=== PATIENT | male | born 1970 | race Hispanic/Latino ===

== ENCOUNTER 2019-07-28 00:32 | Emergency (ER) | payer BC ==
[~2019-07-28] VITALS: Ht 162.6 cm; Wt 98.2 kg
[2019-07-28] MEDS ORDERED: NS 1,000 ML IV ONE (01:30)
[2019-07-28 01:32] LABS: BASO # 0.1 10^3/uL (0.0-0.2); BASO % 0.5 % (0.0-1.0); EOS % 0.3 % (0.0-3.0); HEMOGLOBIN 15.5 g/dl (13.5-17.5); LYMPH % 15.2 % (24.0-44.0); MEAN CORPUSCULAR HEMOGLOBIN 29.4 pg (27.0-33.0); MEAN CORPUSCULAR HGB CONC 32.3 g/dl (32.0-36.5); MEAN CORPUSCULAR VOLUME 90.9 fl (80.0-96.0); MONO # 1.4 10^3/uL (0.0-0.8); MONO % 10.5 % (0.0-5.0); NEUTROPHILS # 9.3 10^3/uL (1.5-8.5); NEUTROPHILS % 71.7 % (36.0-66.0); PLATELET COUNT, AUTOMATED 226 10^3/uL (150-450); RED BLOOD COUNT 5.28 10^6/uL (4.30-6.10)
[2019-07-28] MEDS ORDERED: KETOROLAC 30 MG/ML VIAL (J1885) IV ONE (01:45)
[2019-07-28] MEDS ORDERED: ONDANSETRON 4MG/2ML VIAL (J2405) IV ONE (01:45)
[2019-07-28 01:57] LABS: ALBUMIN 3.8 GM/DL (3.2-5.2); BILIRUBIN,DIRECT 0.1 MG/DL (0.0-0.2); BILIRUBIN,TOTAL 0.6 MG/DL (0.2-1.0); TOTAL PROTEIN 7.5 GM/DL (6.4-8.2)
[2019-07-28] MEDS ORDERED: METAL LOCK LOOP XX ONE (03:11)
--- NOTE | 2019-07-28 04:15 | REPVR ---
PROCEDURE INFORMATION: Exam: CT Abdomen And Pelvis Without Contrast Exam date and time: 07/28/2019 3:20 AM Age: 48 years old Clinical indication: Abdominal pain; Flank; Right; Additional info: Right flank pain, hematuria TECHNIQUE: Imaging protocol: Computed tomography of the abdomen and pelvis without contrast. Radiation optimization: All CT scans at this facility use at least one of these dose optimization techniques: automated exposure control; mA and/or kV adjustment per patient size (includes targeted exams where dose is matched to clinical indication); or iterative reconstruction. COMPARISON: No relevant prior studies available. FINDINGS: Lungs: The visualized portions of the lung bases are normal. Liver: The unenhanced liver appears unremarkable. Gallbladder and bile ducts: There has been a cholecystectomy. There is no biliary ductal dilation. Pancreas: The pancreas appears unremarkable. No pancreatic ductal dilation identified. Spleen: The unenhanced spleen appears unremarkable. Adrenals: The adrenal glands are normal. Kidneys and ureters: There is right sided perinephric stranding. There is mild right hydronephrosis. There is a 2 mm obstructing distal right ureteral stone within approximately 2 cm of the ureterovesicular junction. The stone is not visible on the utility arborist view. The left ureter appears normal with no stones or hydronephrosis. Stomach and bowel: There is no dilation or thickening of the colon. The small bowel appears unremarkable. Appendix: There is high density at the tip of the cecum which may be from a prior appendectomy. Alternatively, it may be calcification within a relatively short appendix. Intraperitoneal space: There is no evidence of free intraperitoneal or pelvic fluid. There is no free intraperitoneal air. Vasculature: No aortic aneurysm. Lymph nodes: No lymphadenopathy is seen. Bladder: The bladder is unremarkable. No stones identified. Reproductive: The prostate gland and seminal vesicles are normal. Bones/joints: Degenerative endplate changes are seen at multiple levels in the visualized spine. Soft tissues: The soft tissues appear unremarkable. IMPRESSION: 2 mm obstructing distal right ureteral stone with associated mild right-sided hydronephrosis and right perinephric stranding. Electronically signed by: Renee Beach On 07/28/2019 04:14:36 AM
[2019-07-28] MEDS ORDERED: CIPR-249 PO (04:49)
[2019-07-28] MEDS ORDERED: FLOM0.4C39 PO (04:49)
[2019-07-28] MEDS ORDERED: OXYCODONE/APAP 5MG/325MG(BULK FOR ED) 1 TABLET PO ONE (05:00)
[2019-07-28] MEDS ORDERED: TAMSULOSIN 0.4 MG CAP PO ONE (05:00)
[2019-07-28 05:09] VITALS: BP 121/78
== END 2019-07-28 05:11 | disposition home or self-care (01) ==
LOC: M ED 00:32
DX: N13.2 Hydronephrosis with renal and ureteral calculous obstruction (principal); R11.0 Nausea; F17.210 Nicotine dependence, cigarettes, uncomplicated
CPT/HCPCS: 36415; 74176; 80047; 80076; 81001; 83690; 85025; 96361; 96374; 96375; 99284; J1885; J2405